=== PATIENT | female | born 1990 | race Native Hawaiian/Other Pacific Islander ===

== ENCOUNTER → 2021-07-18 08:58 | Outpatient (CLI) | payer OTHER, SELFPAY ==
[2021-07-18 10:43] LABS: Hematocrit 28.4 % (36-46); Hemoglobin 9.4 g/dL (12.0-16.0)
[2021-07-18 11:12] LABS: GTT (PREG) 1 Hour PP 50gm Dose 168 mg/dL (76-139)
== END ==
PROVIDERS: Referring Provider Obstetrics & Gynecology; Visit Provider Obstetrics & Gynecology
DX: Z34.82 Encounter for supervision of other normal pregnancy, second trimester (principal); Z3A.26 26 weeks gestation of pregnancy
CPT/HCPCS: 36415; 82950; 85014; 85018

== ENCOUNTER → 2021-07-20 09:43 | Outpatient (CLI) | payer OTHER, SELFPAY ==
[2021-07-20 11:56] LABS: Glucose 1 Hour Gest 217 mg/dL (76-180)
[2021-07-20 11:59] LABS: Glucose Fasting Gestational 81 mg/dL (76-95)
[2021-07-20 13:09] LABS: Glucose 2 Hour Gest 165 mg/dL (76-155)
[2021-07-20 13:13] LABS: Glucose Tol Interp,Gestational INTERPRETATION
[2021-07-20 14:16] LABS: Glucose 3 Hour Gest 123 mg/dL (76-140)
== END ==
PROVIDERS: Referring Provider Obstetrics & Gynecology; Visit Provider Obstetrics & Gynecology
DX: O99.810 Abnormal glucose complicating pregnancy (principal)
CPT/HCPCS: 36415; 82951; 82952

== ENCOUNTER → 2021-09-12 09:19 | Outpatient (CLI) | payer OTHER, SELFPAY ==
[2021-09-12 10:28] LABS: Add Manual Diff / Slide Review NO; Basophils Absolute Auto 0 /uL (0-100); Basophils Percent Auto 0.2 % (0-2); Eosinophils Absolute Auto 100 /uL (0-450); Eosinophils Percent Auto 0.9 % (2-4); Hematocrit 31.3 % (36-46); Hemoglobin 10.7 g/dL (12.0-16.0); Lymphocytes Absolute Auto 1900 /uL (1100-4500); Lymphocytes Percent Auto 16.7 % (25-40); Mean Corpuscular HGB Conc 34.3 % (30-36); Mean Corpuscular Hemoglobin 29.2 PG (26-34); Mean Corpuscular Volume 85.2 fL (80-100); Monocytes Absolute Auto 1000 /uL (0-900); Monocytes Percent Auto 9.3 % (3-14); Neutrophils Absolute Auto 8100 /uL (1500-7000); Neutrophils Percent Auto 72.9 % (50-75); Platelet Count 286 X10^3/uL (150-400); Red Blood Cell Count 3.67 X10^6/uL (4.0-5.2); Red Cell Distribution Width 13.5 % (11.6-14.8); White Blood Cell Count 11.2 X10^3/uL (4.5-11.0)
== END ==
PROVIDERS: Referring Provider Obstetrics & Gynecology; Visit Provider Obstetrics & Gynecology
DX: O99.019 Anemia complicating pregnancy, unspecified trimester (principal)
CPT/HCPCS: 36415; 85025

== ENCOUNTER → 2021-09-25 09:44 | Outpatient (CLI) | payer OTHER, SELFPAY ==
[2021-09-26 07:40] LABS: Strep Grp B PCR NEG for Grp B Strep
== END ==
PROVIDERS: Visit Provider Obstetrics & Gynecology
DX: Z34.83 Encounter for supervision of other normal pregnancy, third trimester (principal); Z3A.36 36 weeks gestation of pregnancy
CPT/HCPCS: 87653

== ENCOUNTER 2021-10-10 19:06 | Inpatient (IN) | payer OTHER, SELFPAY ==
[2021-10-10 19:42] VITALS: BP 119/64
[2021-10-10 20:31] LABS: Add Manual Diff / Slide Review NO; Basophils Absolute Auto 0 /uL (0-100); Basophils Percent Auto 0.3 % (0-2); Eosinophils Absolute Auto 100 /uL (0-450); Eosinophils Percent Auto 1.1 % (2-4); Hematocrit 34.7 % (36-46); Hemoglobin 11.5 g/dL (12.0-16.0); Lymphocytes Absolute Auto 1900 /uL (1100-4500); Lymphocytes Percent Auto 14.1 % (25-40); Mean Corpuscular Hemoglobin 28.6 PG (26-34); Mean Corpuscular Volume 86.6 fL (80-100); Monocytes Absolute Auto 1400 /uL (0-900); Monocytes Percent Auto 10.7 % (3-14); Neutrophils Absolute Auto 9900 /uL (1500-7000); Neutrophils Percent Auto 73.8 % (50-75); Platelet Count 316 X10^3/uL (150-400); Red Blood Cell Count 4.01 X10^6/uL (4.0-5.2); White Blood Cell Count 13.4 X10^3/uL (4.5-11.0)
[2021-10-10 20:46] LABS: COVID19 -Nasal RAPID Negative (Negative)
[2021-10-10] MEDS: DINOPROSTONE VAG (CERVIDIL) 10 MG VAG (20:58)
[2021-10-11] MEDS: LACTATED RINGERS 1,000 ML 100 ML IV (09:33)
[2021-10-11] MEDS: OXYTOCIN PREMIX 30 UNIT/500 ML PLAST..BAG IV (09:35)
--- NOTE | 2021-10-11 17:43 | PM.OBHP.IH.1 ---
OB HPI Date/Time Date of admission: 10/10/21 Date Patient Seen: 10/11/21 Time Patient Seen: 07:30 History of Present Condition Chief complaint: KIERA Calculator Estimated Delivery Date Method Current WG Current Estimate 10/17/21 LMP (Certain) 39w 1d Other Estimates 10/17/21 Ultrasound #1 39w 1d Estimated Gestational Age (weeks): 39+1 : 1 Para: 0 care: good care, initiated at week # (11), number of visits (10) and pounds weight gain (43) Dating criteria OB: LMP confirmed by 1st trimester US Ultrasounds: normal 1st trimester US and normal mid trimester US Obstetrical complications: gestational diabetes Medical complications OB: none Indications Indication for induction OB: gestational diabetes Preadmission Labs Last OB Lab Results: Blood Type O Positive 10/10/21 20:02 Antibody Screen Negative 10/10/21 20:02 Hematocrit 34.7 % (36-46) L 10/10/21 20:02 Hemoglobin 11.5 g/dL (12.0-16.0) L 10/10/21 20:02 Glucose 1 Hour 168 mg/dL (76-139) H 07/18/21 10:16 Group B Streptococcus (PCR) Neg for grp b strep 09/25/21 09:44 -: Chlamydia screen: negative, Gonorrhea screen: negative and Urine: negative -: PAP smear: Normal Genetic Screens: Cell-free DNA: Normal and Alpha-fetoprotein: Normal External Labs -: Urine: negative Prior (ies) Past Pregnancies Del. Date GA/Weeks Labor Lgth Wt Sex Route Outcome Anesthesia Place Delv Breastfeed Preg Comp Name 05/22/01 4 elective 08/25/02 elective Delivery Date: 05/22/01 Last Updated by: Vaishali Resendiz R.N. 2 chemically induced ABs Evaluation Evaluation Baseline heart rate: 130 Variability: Moderate (11-25) monitor accelerations: Present Monitor Decelerations: Absent Uterine Contraction Intensity: Mild Status: Category l Dilation (cm): 1 Effacement (%): 50 station: -2 Position of cervix: posterior Consistency: medium [facility] Medical History (Updated 09/12/21 @ 17:09 by Juan Valentin MD) Arm fracture (~1994) Depression Psoriasis (~2003) UTI (urinary tract infection) Family History (Updated 06/17/21 @ 21:07 by Cydney James) Grandfather Diabetes mellitus Grandmother Psoriasis Grandfather Hyperlipidemia Stroke Social History marital status: details: SHIRLEY Kelly, phone [phone] number of children: 0 household members: spouse and family lives independently: Yes caregiver/support person: No housing: house pets and animals: Yes ([facility]) education level: college 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) current occupational exposures/hazards: No seatbelt use: always water heater temp set < 120 deg: Yes working smoke detector in home: Yes fire extinguisher in home: Yes carbon monox detector in home: Yes firearms in home: Yes firearms unloaded and locked: Yes do you feel safe at home: Yes Smoking Status: Never smoker second hand exposure: No alcohol intake: never substance use type: does not use and marijuana (In high school) during the past year weight has: remained stable well-balanced diet: daily or most days daily servings fruits/ve-4 caffeine: Yes (1/day) Type(s) of exercise: irregular exercise Meds Home Medications and Allergies Home Medications Medication Instructions Recorded Confirmed Type prenat.vits,alan,jum-nwgm-rutzw 1 tab PO DAILY 05/25/21 10/10/21 History blood sugar diagnostic (Blood #120 ea 07/23/21 10/10/21 Rx Glucose Test strips) blood-glucose meter (Blood Glucose #1 ea 07/23/21 10/10/21 Rx Monitoring kit) lancets #120 ea 07/23/21 10/10/21 Rx Cimzia 10/10/21 10/10/21 History Allergies Allergy/AdvReac Type Severity Reaction Status Date / Time No Known Drug Allergies Allergy Verified 10/03/21 07:59 OB Exam Narrative Exam Narrative: Generally: Patient is sitting up in bed, no acute distress Lungs: Clear to auscultation bilaterally Cardiovascular: Regular rate and rhythm Fundal height: 39 cm Estimated weight: 7-1/2 lb Extremities: Trace edema, 1+ DTRs Objective Labs Result Diagrams: 10/10/21 20:02 Labs: Laboratory Results - last 24 hr 10/10/21 10/10/21 10/10/21 20:02 20:02 20:02 WBC 13.4 H RBC 4.01 Hgb 11.5 L Hct 34.7 L MCV 86.6 MCH 28.6 MCHC 33.0 RDW 14.0 Plt Count 316 Neut % (Auto) 73.8 Lymph % (Auto) 14.1 L [place] % (Auto) 10.7 Eos % (Auto) 1.1 L Baso % (Auto) 0.3 Neut # (Auto) 9900 H Lymph # (Auto) 1900 [place] # (Auto) 1400 H Eos # (Auto) 100 Baso # (Auto) 0 SARS-CoV-2 (PCR) Negative Blood Type O Positive Antibody Screen Negative Assessment and Plan Assessment and Plan Assessment and Plan narrative: Assessment: 31-year-old 1 para 0 at 39-,1/7 weeks gestation status post Cervidil overnight Gestational diabetes Plan: Pitocin per protocol 2 Epidural as necessary Expected management to spontaneous vaginal delivery Time Spent with Patient Total time spent with greater than 50% in coordination of care (as documented) at patient's floor/unit and/or counseling patient:: 15-24 minutes
--- NOTE | 2021-10-11 17:53 | PM.OBPNLAB ---
Date/Time Date Patient Seen: 10/11/21 Time Patient Seen: 13:21 Pain Control Pain control: tolerating well Pelvic Exam Dilation (cm): 2 Effacement (%): 70 station: -2 Amniotic membrane status: Intact Contractions Contractions on admission: none Monitor mode: External Pitocin rate (mU/min): 10 Contraction frequency (min): 3 Contraction duration (min): 1 Contraction intensity: Mild Status status: Category l Heart Rate Baseline: 130 Monitor Accelerations: Present Monitor Decelerations: Absent Monitor Variability: Moderate Assessment and Plan Assessment: induction ongoing Plan: continuous present management
--- NOTE | 2021-10-11 17:54 | PM.OBPNLAB ---
Date/Time Date Patient Seen: 10/11/21 Time Patient Seen: 17:54 Pain Control Pain control: tolerating well Pelvic Exam Dilation (cm): 2 Effacement (%): 75 station: -1 Amniotic membrane status: Intact Contractions Monitor mode: External Pitocin rate (mU/min): 16 Contraction frequency (min): 3 Contraction duration (min): 1 Contraction pattern: Regular Contraction intensity: Mild Status status: Category l Heart Rate Baseline: 135 Monitor Accelerations: Present Monitor Decelerations: Absent Monitor Variability: Moderate Assessment and Plan Assessment: induction ongoing Comments: Discontinue Pitocin Oral Cytotec overnight Patient may leave the hospital to go and have dinner
[2021-10-12] MEDS: DINOPROSTONE VAG (CERVIDIL) 10 MG VAG (00:19)
[2021-10-12] MEDS: LACTATED RINGERS 1,000 ML 100 ML IV ×3 (08:55→18:58)
[2021-10-12] MEDS: OXYTOCIN PREMIX 30 UNIT/500 ML PLAST..BAG IV (08:56)
--- NOTE | 2021-10-12 13:24 | PM.OBPNLAB ---
Date/Time Date Patient Seen: 10/12/21 Time Patient Seen: 07:50 Pain Control Pain control: tolerating well Pelvic Exam Amniotic membrane status: Intact Contractions Contractions on admission: none Monitor mode: External Status status: Category l Heart Rate Baseline: 135 Monitor Accelerations: Present Monitor Decelerations: Absent Monitor Variability: Moderate Assessment and Plan Assessment: induction ongoing Comments: s/p Cervidil from 12 mid - 3 am Restart Pitocin AROM when able Expectant management to
--- NOTE | 2021-10-12 13:26 | PM.OBPNLAB ---
Date/Time Date Patient Seen: 10/12/21 Time Patient Seen: 11:30 Pain Control Pain control: tolerating well Pelvic Exam Dilation (cm): 3 Effacement (%): 80 station: -1 Amniotic membrane status: Intact Contractions Contractions on admission: none Monitor mode: External Pitocin rate (mU/min): 10 Contraction frequency (min): 3 Contraction duration (min): 1 Contraction pattern: Regular Contraction intensity: Moderate Status status: Category l Heart Rate Baseline: 130 Monitor Accelerations: Present Monitor Decelerations: Absent Monitor Variability: Moderate Assessment and Plan Assessment: active labor Comments: AROM with copious clear amniotic fluid Epidural prn
--- NOTE | 2021-10-12 13:28 | PM.OBPNLAB ---
Date/Time Date Patient Seen: 10/12/21 Time Patient Seen: 13:28 Pain Control Pain control: tolerating well Pelvic Exam Dilation (cm): 3 Effacement (%): 80 station: -1 Amniotic membrane status: Ruptured Comments: Leaking copious amniotic fluid Contractions Monitor mode: External Pitocin rate (mU/min): 6 Contraction frequency (min): 3 Contraction duration (min): 1 Contraction pattern: Regular Contraction intensity: Moderate Status status: Category l Heart Rate Baseline: 135 Monitor Accelerations: Present Monitor Decelerations: Absent and Late (few, after AROM) Monitor Variability: Moderate Assessment and Plan Assessment: active labor Plan: continuous present management Comments: Epidural prn
--- NOTE | 2021-10-12 16:01 | PM.AN.REGBLK ---
Regional Block Pre-procedure PMH/ROS narrative: term induction, GDM diet controlled ASA Class: II Labs: Hct 34.7 % (36-46) L 10/10/21 20:02 Plt Count 316 X10^3/uL (150-400) 10/10/21 20:02 Medications: Current Medications Generic Name Dose Route Start Last Admin Trade Name Freq PRN Reason Stop Dose Admin Calcium Carbonate 1,000 mg 10/10/21 19:20 Calcium Carbonate 500 Mg Tab PO Q2HR PRN Dyspepsia Carboprost Tromethamine 250 mcg 10/10/21 19:20 Carboprost 250 Mcg/Ml Ampul IM Q90M PRN Bleeding Fentanyl 50 mcg 10/10/21 19:20 Fentanyl 100 Mcg/2 Ml Inj IV Q1H PRN Pain, Moderate (4-6) Lactated Ringer's 1,000 mls @ 100 mls/hr 10/10/21 19:30 10/12/21 15:41 Lactated Ringers IV 100 mls/hr CONT FLAKO Administration Oxytocin/Lactated Ringer's 30 unit in 500 mls @ 200 mls/hr 10/10/21 19:20 Oxytocin Premix IV CONT PRN Bleeding Protocol Oxytocin/Lactated Ringer's 30 unit in 500 mls @ 3 mls/hr 10/10/21 19:30 10/12/21 08:56 Oxytocin Premix IV 3 milliunit/min TITRATE FLAKO 3 mls/hr Administration Protocol 3 MILLIUNIT/MIN Tranexamic Acid 1,000 mg/ 100 mls @ 200 mls/hr 10/10/21 19:20 Sodium Chloride IV NOW PRN Bleeding Oxytocin/Lactated Ringer's 30 unit in 500 mls @ 1 mls/hr 10/12/21 08:30 10/12/21 15:38 Oxytocin Premix IV Not Given TITRATE FLAKO Protocol 1 MILLIUNIT/MIN Methylergonovine Maleate 0.2 mg 10/10/21 19:20 Methylergonovine 0.2 Mg/Ml Vial IM NOW PRN Bleeding Methylergonovine Maleate 0.2 mg 10/10/21 19:20 Methylergonovine 0.2 Mg Tablet PO Q6HR PRN Heavy Bleeding Metoclopramide HCl 10 mg 10/10/21 19:20 Metoclopramide 10 Mg/2 Ml Inj IV NOW PRN Nausea And Vomiting Misoprostol 1,000 mcg 10/10/21 19:20 Misoprostol 200 Mcg Tablet SD NOW PRN Bleeding Misoprostol 400 mcg 10/10/21 19:20 Misoprostol 200 Mcg Tablet SL NOW PRN Bleeding Misoprostol 800 mcg 10/10/21 19:20 Misoprostol 200 Mcg Tablet SD NOW PRN Bleeding Misoprostol 50 mcg 10/11/21 18:00 10/12/21 15:39 Misoprostol 25 Mcg Tablet PO Not Given Q6HR FLAKO Naloxone HCl 0.2 mg 10/10/21 19:20 Naloxone 0.4 Mg/Ml Vial IV Q2MIN PRN Opiate Reversal Ondansetron HCl 4 mg 10/10/21 19:20 Ondansetron 4 Mg/2 Ml Inj IV Q4HR PRN Nausea And Vomiting Oxytocin 10 unit 10/10/21 19:20 Oxytocin 10 Unit/Ml Vial IM NOW PRN Bleeding Zolpidem Tartrate 5 mg 10/11/21 17:57 Zolpidem 5 Mg Tablet PO BEDTIME PRN Sleep Allergies: Allergies Allergy/AdvReac Type Severity Reaction Status Date / Time No Known Drug Allergies Allergy Verified 10/03/21 07:59 Procedure Insertion date: 10/12/21 Insertion time: 13:20 Prep/Local: betadine x3 and 1% lidocaine Interspace: L3-4 Patient position: sitting Needle: 18 gauge Hustead (CEE: 27g Pencan through Hustead, clear CSF, 1mL 0.25% bupiv MPF) Loss of resistance with: saline BERNABE at (cm): 5 Catheter placed at SKIN (cm): 10 Catheter in SPACE (cm): 5 Insertion: No CSF, No Blood, No Paresthesia with insertion, No Paresthesia with injection and No Test dose reaction Initial Medications TEST DOSE: 1.5% lidocaine with epinephrine 1:200k (mL): 3 BOLUS DOSE time: 16:28 BOLUS DOSE (mL): 4 BOLUS DOSE med: other (infusate) Infusion INFUSION: 0.125% bupivacaine and with fentanyl 2 mcg/mL Initial rate (mL/hr): 6 Subsequent interventions: see anesthesia record. to OR for CS, failure to progress Post-procedure Anesthesia time START: 16:05 Anesthesia time END: 22:14 Post-procedure Anesthesia Assessment: Yes CV function: HR/BP stable, Yes Resp function: RR/sat/airway adequate and Yes Mental status appropriate
--- NOTE | 2021-10-12 18:48 | PM.OBPNLAB ---
Date/Time Date Patient Seen: 10/12/21 Time Patient Seen: 18:51 Pain Control Pain control: epidural Pelvic Exam Dilation (cm): 7 Effacement (%): 100 station: -1 Amniotic membrane status: Ruptured Contractions Contractions on admission: none Monitor mode: External Pitocin rate (mU/min): 12 Contraction frequency (min): 3 Contraction pattern: Regular Contraction intensity: Strong/Firm Status status: Category l Heart Rate Baseline: 135 Monitor Accelerations: Present Monitor Decelerations: Absent Monitor Variability: Moderate Assessment and Plan Assessment: active labor and induction ongoing Plan: continuous present management
--- NOTE | 2021-10-12 22:22 | PM.OBPNLAB ---
Date/Time Date Patient Seen: 10/12/21 Time Patient Seen: 22:22 Pain Control Pain control: epidural Pelvic Exam Dilation (cm): 6 Effacement (%): 100 station: -1 Amniotic membrane status: Ruptured Contractions Contractions on admission: none Monitor mode: External Pitocin rate (mU/min): 12 Contraction frequency (min): 3 Contraction duration (min): 1 Contraction pattern: Regular Contraction intensity: Strong/Firm Status status: Category l Heart Rate Baseline: 135 Monitor Accelerations: Present Monitor Decelerations: Absent Monitor Variability: Moderate Assessment and Plan Assessment: other (Stage 1 Arrest of Labor) Plan: Comments: The risks, benefits, and alternatives to the procedure were explained to the patient. The risks including bleeding, infection, injury to the bowel, bladder, or ureters. She understands these risks and agrees to proceed. A full par Q was held and consent form was signed.
--- NOTE | 2021-10-12 22:23 | PM.PREOP ---
Pre-operative Note COVID-19 COVID-19 status: Negative Result date/Date tested (Pos, Neg/Pending): 10/10/21 Criteria for continued procedure: Non-surgical alternatives not available or appropriate per current SOC Interval Note History & Physical reviewed/Exam performed by Physician: Yes Changes to H&P: No H&P completed within 30 days and has changed as indicated here:: 10/11/21
[2021-10-12] MEDS: ACETAMINOPHEN IV 1,000 MG/100 ML VIAL 400 MG IV (22:46)
[2021-10-12] MEDS: CEFAZOLIN 2 GM/20 ML SYRINGE IV (22:55)
--- NOTE | 2021-10-12 23:06 | SUR.OPER ---
Supine on Padded OR bed, head on pillow, safety belt at thigh, arms secured on padded arm boards at <90 degrees abduction. Bump under right buttock. Legs uncrossed with pillow under knees, gel pad to heels, tape over blanket to lower legs.
--- NOTE | 2021-10-12 23:30 | SUR.OPER ---
viable baby boy born at 2310, placenta delivered at 2315, cord blood and placenta given to OB RN, 12/28
--- NOTE | 2021-10-12 23:55 | P.OP_ITS ---
Operative Date/Time/Diagnoses Date of procedure: 10/12/21 Time of procedure: 23:55 Pre-op diagnosis: Thirty-nine weeks gestation Gestational diabetes Stage I arrest of labor Post-op diagnosis: same Procedure & Clinicians Procedure: Primary low-transverse section Same procedure as scheduled: Yes Indications: 39 weeks gestation Stage I arrest of labor Surgeon: Nadeen Sheikh Yes if Unassisted: Yes Anesthesia Type: Epidural (With Duramorph) Operative Notes Findings: Live male in the ROP presentation Normal uterus, tubes, and ovaries Nuchal cord x1 Closure Type: primary Specimen(s): cord blood and placenta Intraoperative meds administered: Acetaminophen, Duramorph and Ketorolac Applied: Catheter Estimated Blood Loss (mL): 600 Procedure in detail: The patient was taken to the operating room where she was placed in the dorsal supine position with a leftward tilt. She was prepped and draped in the usual sterile fashion. A timeout was performed. After epidural analgesia was found to be adequate, a Pfannenstiel skin incision was made 2 fingerbreadths above the pubic symphysis and carried through to the underlying layer fascia. The fascia was nicked in the midline, and the incision extended bilaterally with the Cano scissors. The superior aspect of the fascial incision was grasped with a [place] clamps, elevated, and the underlying rectus muscles dissected off sharply and bluntly. Attention was then turned to the inferior aspect of this incision which in a similar fashion was grasped with a Nelida clamps, elevated, and the underlying rectus muscles dissected off sharply and bluntly. The rectus muscles were in the midline. The peritoneum was identified, grasped between 2 hemostats, and entered sharply with the Metzenbaum scissors. This incision was extended superiorly and inferiorly with good visualization of the bladder. The bladder blade was inserted. The vesicouterine peritoneum was identified, grasped with the pickup, and entered sharply with the Metzenbaum scissors. This incision was extended bilaterally, and the bladder flap was created digitally. The bladder blade was reinserted. The lower uterine segment was incised in a transverse fashion with the scalpel. Upon entering the amniotic sac there was a small amount of clear amniotic fluid. The 's head was delivered without difficulty. The nose and mouth were suctioned with bulb suction. The remainder of the body delivered without difficulty. The cord was double clamped and cut after one minute. The was handed off to waiting RN and RT. The placenta was delivered manually. The uterus was cleared of all clots and debris. The uterine incision was repaired with #1 chromic in a running interlocking fashion, and a second layer the same suture was used for an imbricating layer. Hemostasis was achieved. The tubes and ovaries were examined and were found to be normal. The gutters were cleared of all clots and debris. The bladder flap was reapproximated using 2-0 Vicryl in a running fashion. The parietal peritoneum was closed using 2-0 Vicryl in a running fashion. The fascia was reapproximated using 0 Vicryl in a running fashion. Subcutaneous layer was copiously irrigated with warm normal saline. 6 simple interrupted sutures of 3-0 Vicryl were placed to reapproximate the subcutaneous layer. The skin was closed with 4-0 Monocryl in a subcuticular fashion. Steri- Strips were placed. An Aquacel dressing was placed. The uterus was expressed of a small amount of old blood. Sponge, lap, and instrument counts were correct x-2. The patient tolerated the procedure well, and was taken to PACU in stable condition. Complications: none [place] Baby 1: Infant Gender: Male Presentation: vertex Position: Right Occiput Posterior Placental Delivery Description: Manual Removal Cord Vessel Description: 3 Vessels, Nuchal Cord (x 1) and Reduced score (1 min): 9 score (5 min): 9 weight: 7 lb 12.5 oz Post-operative Condition: stable Disposition: PACU Aftercare: routine postop
[2021-10-12 23:59] VITALS: BP 116/62; PULSE 96; RESP 18; TEMP 36.4; O2SAT 98
[2021-10-13 00:03] VITALS: BP 99/60; PULSE 94; RESP 23; TEMP 36.3; O2SAT 99
[2021-10-13 00:10] VITALS: BP 110/69; PULSE 106; RESP 20; TEMP 36.2; O2SAT 99
[2021-10-13] MEDS: ACETAMINOPHEN 325 MG TABLET 650 MG PO ×4 (01:03→20:15)
[2021-10-13] MEDS: OXYCODONE IR 5 MG TABLET PO ×3 (01:28→22:03)
[2021-10-13] MEDS: KETOROLAC 30 MG/ML VIAL IV ×3 (05:09→17:00)
[2021-10-13] MEDS: DOCUSATE 100 MG CAPSULE 200 MG PO (09:01)
[2021-10-13] MEDS: PRENATAL VIT,CALC/IRON/FOLIC 1 TABLET 1 TAB PO (09:02)
[2021-10-13] MEDS: LANOLIN OINT 7 GM 1 APPLIC TOP (09:02)
--- NOTE | 2021-10-13 10:11 | PM.OBPN.1 ---
Subjective - OB Subjective Patient comments: no complaints, pain well controlled and tolerating diet baby status: doing well and nursing well feeding status: exclusively breast feeding Date Patient Seen: 10/13/21 Time Patient Seen: 10:11 Interval history: Patient is a 31-year-old 1 para 1 postop day # 0-1 status post primary section for stage I arrest of labor. Nursing is going well. Pain is well controlled. Ortiz catheter still in. Patient has tolerated a diet. Exam Vital Signs (past 8 hours): Oxygen Delivery Method Room Air Oxygen Flow Rate 0 Narrative Exam Narrative: Generally: Patient is sitting up in bed, holding infant, no acute distress Lungs: Clear to auscultation bilaterally Cardiovascular: Regular rate and rhythm Fundus: Firm at U -1 Incision: Clean dry and intact with Aquacel dressing. There is a small less than quarter-size area with some old blood. Extremities: Trace edema, negative Homans Objective Labs Result Diagrams: 10/10/21 20:02 Assessment & Plan Plan day: 1 plan OB: routine postop care Time Spent With Patient Time: Total time spent is greater than 50% in coordination of care (as documented) at patient's floor/unit and/or counseling patient: Time with patient: 15-24 minutes
[2021-10-13 12:35] LABS: Hematocrit 18.5 % (36-46); Hemoglobin 6.2 g/dL (12.0-16.0)
[2021-10-13 13:19] LABS: Add Manual Diff / Slide Review NO; Basophils Absolute Auto 0 /uL (0-100); Basophils Percent Auto 0.2 % (0-2); Eosinophils Absolute Auto 100 /uL (0-450); Eosinophils Percent Auto 0.7 % (2-4); Lymphocytes Absolute Auto 1500 /uL (1100-4500); Lymphocytes Percent Auto 11.3 % (25-40); Mean Corpuscular HGB Conc 33.6 % (30-36); Mean Corpuscular Hemoglobin 28.7 PG (26-34); Mean Corpuscular Volume 85.5 fL (80-100); Monocytes Absolute Auto 1500 /uL (0-900); Monocytes Percent Auto 11.2 % (3-14); Neutrophils Absolute Auto 10300 /uL (1500-7000); Neutrophils Percent Auto 76.6 % (50-75); Platelet Count 196 X10^3/uL (150-400); Red Cell Distribution Width 13.6 % (11.6-14.8); White Blood Cell Count 13.5 X10^3/uL (4.5-11.0)
[2021-10-13 13:27] LABS: Hematocrit 18.2 % (36-46); Hemoglobin 6.1 g/dL (12.0-16.0)
[2021-10-13] MEDS: SODIUM CHLORIDE 0.9% 250 ML 21 ML IV (16:05)
[2021-10-13] MEDS: IRON SUCROSE 300 MG in SODIUM CHLORIDE 0.9% 250 ML 176.667 MG IV (16:05)
[2021-10-13 19:16] LABS: Hematocrit 15.9 % (36-46); Hemoglobin 5.3 g/dL (12.0-16.0)
--- NOTE | 2021-10-13 19:32 | DI.US.S_ITS ---
PROCEDURE: US PELVIC LIMITED INDICATIONS: Uterine scan for retained tissue post delivery TECHNIQUE: Real-time transabdominal scanning was performed of the pelvic organs, with image documentation. COMPARISON: None. FINDINGS: Uterus: Uterus is anteverted and normal in size for immediate status at 9.5 x 11.3 x 15.9 cm. The myometrium is homogeneous. The endometrium measures 9.0 mm combined thickness. There is mild heterogeneity of the endometrial lining considering 24 hour status, an expected finding Ovaries: Not seen due to bowel gas. Other: No pathologic free abdominal or pelvic fluid. IMPRESSION: No sign of retained products of conception. Nonvisualization of the ovaries bilaterally due to overlying bowel gas. Uterus enlarged as expected for 24 hour status. We strive to produce accurate, complete, and clear reports of imaging services. To assist us in improving patient care, this report was composed using standard report templates and voice recognition software. Therefore, it may contain abnormal punctuation, insertions and/or omissions. Occasional wrong-word or sound-alike substitutions may occur. Though we review the report and make efforts to correct it, we do recommend that the report be read carefully in proper context to recognize any text inaccuracies. Dictated by: Ryan Hawley M.D. on 10/13/2021 at 20:22 Approved by: Ryan Hawley M.D. on 10/13/2021 at 20:24
[2021-10-13 22:03] VITALS: BP 114/72; PULSE 153; RESP 20; TEMP 36.9
[2021-10-13 22:26] VITALS: BP 107/68; PULSE 118; RESP 18; TEMP 37.4
[2021-10-13 22:43] VITALS: BP 99/59; PULSE 118; RESP 18; TEMP 37.4
[2021-10-14] VITALS (8 sets, daily range): BP systolic 100–115; BP diastolic 53–73; PULSE 89–118; RESP 16–30; TEMP 36.7–37.4; O2SAT 96–99
[2021-10-14] MEDS: IBUPROFEN 600 MG TABLET PO ×4 (01:40→20:09)
[2021-10-14] MEDS: ACETAMINOPHEN 325 MG TABLET 650 MG PO ×3 (02:53→18:14)
[2021-10-14] MEDS: OXYCODONE IR 5 MG TABLET PO ×3 (06:14→22:30)
[2021-10-14] MEDS: DOCUSATE 100 MG CAPSULE 200 MG PO (07:53)
[2021-10-14] MEDS: PRENATAL VIT,CALC/IRON/FOLIC 1 TABLET 1 TAB PO (07:54)
[2021-10-14 08:09] LABS: Add Manual Diff / Slide Review NO; Basophils Absolute Auto 0 /uL (0-100); Basophils Percent Auto 0.2 % (0-2); Eosinophils Absolute Auto 100 /uL (0-450); Eosinophils Percent Auto 0.8 % (2-4); Hematocrit 24.8 % (36-46); Hemoglobin 8.4 g/dL (12.0-16.0); Lymphocytes Absolute Auto 2600 /uL (1100-4500); Lymphocytes Percent Auto 15.8 % (25-40); Mean Corpuscular HGB Conc 34.1 % (30-36); Mean Corpuscular Hemoglobin 29.2 PG (26-34); Mean Corpuscular Volume 85.7 fL (80-100); Monocytes Absolute Auto 1700 /uL (0-900); Monocytes Percent Auto 10.6 % (3-14); Neutrophils Absolute Auto 11800 /uL (1500-7000); Neutrophils Percent Auto 72.6 % (50-75); Platelet Count 215 X10^3/uL (150-400); Red Blood Cell Count 2.89 X10^6/uL (4.0-5.2); Red Cell Distribution Width 14.1 % (11.6-14.8); White Blood Cell Count 16.2 X10^3/uL (4.5-11.0)
--- NOTE | 2021-10-14 08:30 | DI.CT.S_ITS ---
PROCEDURE: CT ABDOMEN PELVIS WO CON INDICATIONS: drop in hematocrit, rule out hematoma TECHNIQUE: Noncontrast 5 mm thick sections acquired from the diaphragms to the symphysis. 5 mm coronal and sagittal reformats were then performed. For radiation dose reduction, the following was used: automated exposure control, adjustment of mA and/or kV according to patient size. COMPARISON: None. FINDINGS: Image quality: Excellent. ABDOMEN: Lung bases: Lung bases are clear. Heart size is normal. Solid organs: Liver is normal in size. Gallbladder is unremarkable . Pancreas is normal in contours. Spleen is normal in size. No adrenal nodules. Kidneys are normal in size. There is a nonobstructing linear 5 mm left lower pole kidney stone. Peritoneum and bowel: Stomach and small bowel loops appear normal. Increased quantity of stool in the colon. Nodes and vessels: No retroperitoneal or mesenteric adenopathy by size criteria. Aorta and inferior vena cava are normal in caliber. Miscellaneous: There is been at recent with a low transverse abdominal wall incision containing small foci of gas. There is a heterogeneous multi lobulated area of increased density in the anterior abdominal wall involving the lower aspect of the rectus sheaths and the underlying preperitoneal space. Overall this area measures roughly 8.6 x 5.4 x 12.1 cm. There is slight mass effect on the underlying urinary bladder. PELVIS: Genitourinary: There is an enlarged uterus. The urinary bladder is partially filled and appears otherwise normal despite overlying mass-effect anteriorly. Miscellaneous: No inguinal hernias or adenopathy. Trace presacral edema/fluid. Bones: No suspicious bony lesions. No vertebral body compression fractures. IMPRESSION: 1. Large lower abdominal wall and preperitoneal space hematoma in the low abdomen/pelvis measuring 292 cc in volume. It is having mass effect on the underlying urinary bladder to a mild degree. 2. Other expected findings of recent and uterus. 3. Incidental finding of nonobstructing left lower pole kidney stone. 4. Discussed with Dr. Jiménez at 10:10 hours. Dictated by: Cordelia Del Rio M.D. on 10/14/2021 at 9:57 Approved by: Cordelia Del Rio M.D. on 10/14/2021 at 10:10
[2021-10-14 12:00] LABS: Add Manual Diff / Slide Review NO; Basophils Absolute Auto 0 /uL (0-100); Basophils Percent Auto 0.2 % (0-2); Eosinophils Absolute Auto 200 /uL (0-450); Eosinophils Percent Auto 1.2 % (2-4); Hematocrit 22.5 % (36-46); Hemoglobin 7.7 g/dL (12.0-16.0); Lymphocytes Absolute Auto 2000 /uL (1100-4500); Lymphocytes Percent Auto 13.4 % (25-40); Mean Corpuscular Volume 85.4 fL (80-100); Monocytes Absolute Auto 1800 /uL (0-900); Monocytes Percent Auto 12.3 % (3-14); Neutrophils Absolute Auto 10600 /uL (1500-7000); Neutrophils Percent Auto 72.9 % (50-75); Platelet Count 198 X10^3/uL (150-400); Red Blood Cell Count 2.64 X10^6/uL (4.0-5.2); Red Cell Distribution Width 13.8 % (11.6-14.8); White Blood Cell Count 14.6 X10^3/uL (4.5-11.0)
--- NOTE | 2021-10-14 13:11 | P.PNOB_ITS ---
Subjective - OB Subjective Patient comments: no complaints, pain well controlled and tolerating diet baby status: doing well and nursing well feeding status: exclusively breast feeding Date Patient Seen: 10/14/21 Time Patient Seen: 13:11 Interval history: Patient is a 31-year-old 1 para 1 postop day # 1-2 status post primary section for stage I arrest of labor. Her hematocrit dropped more than expected for the blood loss during the surgery. She had an ultrasound last night which did not reveal any fluid collection in the pelvis or any retained products. She received 2 units of blood overnight. She felt well this morning. No dizziness or lightheadedness. Due to suspicion for a hematoma, a CT scan was ordered and showed a 12 x 8 x 5 cm preperitoneal clot. Also, a repeat H&H showed that the hematocrit dropped again from 8:00 a.m. this morning. After discussing with the patient and her the options, we have decided to proceed with exploratory laparotomy with evacuation of clot and possible ligation verses cautery of bleeder. Exam Vital Signs (past 8 hours): Oxygen Delivery Method Room Air Oxygen Flow Rate 0 Narrative Exam Narrative: Generally: Patient is sitting up in bed, nursing , no acute distress Lungs: Clear to auscultation bilaterally Cardiovascular: Regular rate and rhythm Fundus: Firm at U -1 Incision: Intact with Aquacel dressing. There was a small area of old blood on the underside of the Aquacel. Extremities: Negative Homans, trace edema Objective Labs Result Diagrams: 10/14/21 11:56 Labs: Laboratory Results - last 24 hr 10/13/21 10/13/21 10/13/21 13:06 13:06 19:00 WBC 13.5 H RBC 2.10 L Hgb 6.1 L* 5.3 L* Hct 18.2 L* 15.9 L* MCV 85.5 MCH 28.7 MCHC 33.6 RDW 13.6 Plt Count 196 Neut % (Auto) 76.6 H Lymph % (Auto) 11.3 L [place] % (Auto) 11.2 Eos % (Auto) 0.7 L Baso % (Auto) 0.2 Neut # (Auto) 06630 H Lymph # (Auto) 1500 [place] # (Auto) 1500 H Eos # (Auto) 100 Baso # (Auto) 0 Blood Type O Positive Antibody Screen Negative Crossmatch See Detail 10/14/21 10/14/21 07:40 11:56 WBC 16.2 H 14.6 H RBC 2.89 L 2.64 L Hgb 8.4 L 7.7 L Hct 24.8 L 22.5 L MCV 85.7 85.4 MCH 29.2 29.0 MCHC 34.1 34.0 RDW 14.1 13.8 Plt Count 215 198 Neut % (Auto) 72.6 72.9 Lymph % (Auto) 15.8 L 13.4 L [place] % (Auto) 10.6 12.3 Eos % (Auto) 0.8 L 1.2 L Baso % (Auto) 0.2 0.2 Neut # (Auto) 37871 H 09500 H Lymph # (Auto) 2600 2000 [place] # (Auto) 1700 H 1800 H Eos # (Auto) 100 200 Baso # (Auto) 0 0 Blood Type Antibody Screen Crossmatch Assessment & Plan Plan day: 2 Comments: Exploratory laparotomy with evacuation of clot and ligation versus cautery of bleeder The risks, benefits, and alternatives to the procedure were explained to the patient. The risks including bleeding or infection. She understands these risks and agrees to proceed. A full par Q was held and consent form was signed. Anesthesia to evaluate for general endotracheal anesthesia versus spinal. Time Spent With Patient Time: Total time spent is greater than 50% in coordination of care (as documented) at patient's floor/unit and/or counseling patient: Time with patient: 25 - 35 minutes
[2021-10-14] MEDS: METOCLOPRAMIDE 10 MG/2 ML INJ IV (14:49)
[2021-10-14] MEDS: CEFAZOLIN 2 GM/20 ML SYRINGE IV (16:14)
[2021-10-14] MEDS: TRANEXAMIC ACID 1,000 MG in SODIUM CHLORIDE 0.9% 100 ML 200 MG IV (16:16)
--- NOTE | 2021-10-14 16:23 | SUR.OPER ---
Supine on padded OR bed, head on pillow, arms secured on padded arm boards at <90 degrees abduction, legs uncrossed, safety belt at thigh, tape over blanket over lower legs.
[2021-10-14] MEDS: BUPIVACAINE 0.5% (PF) VIAL 30 ML INJ (16:30)
--- NOTE | 2021-10-14 17:05 | PM.GYNOP.1 ---
Operative Date/Time/Diagnoses Date of procedure: 10/14/21 Time of procedure: 17:05 Pre-op diagnosis: Preperitoneal hematoma Dropping hematocrit Post-op diagnosis: same Procedure & Clinicians Procedure: Procedures Operation Date: 10/12/21 22:30 Actual Procedure Side Surgeon p Section Nadeen Jiménez MD Operation Date: 10/14/21 16:00 Actual Procedure Side Surgeon p ABDOMINAL WOUND EXPLORATION,EVACUATION OF CLOT Not Applicable Nadeen Jiménez MD Indications: Preperitoneal hematoma by CT scan Dropping hematocrit Surgeon: Nadeen Jiménez Anesthesia Type: General Operative Notes Findings: 12 x 8 x 5 cm hematoma between the muscle and peritoneum Closure Type: primary Specimen(s): none Estimated blood loss (mL): 10 Blood products transfused: none Procedure in detail: After informed consent was obtained, the patient was taken to the operating room where she was placed in the dorsal supine position. After adequate general endotracheal anesthesia was achieved, she was prepped and draped in the usual sterile fashion. A time-out was performed. The previous Pfannenstiel incision was opened as was the subcutaneous layer. The suture in the fascia was clipped and the fascial layer was opened. There was a large hematoma. This was evacuated both manually and with irrigation and suction. There was a bleeding area underneath the fascia in the most in inferior area. A gmhwri-no-hjwws suture with two 0 Vicryl was placed. Hemostasis was achieved. There was a small area on the left rectus muscle which was also oozing. A ppjeza-ay-lazzz suture with 2-0 Vicryl was placed. Hemostasis was achieved. The area was copiously irrigated and all of the visible clot removed. There was no bleeding noted. The fascia was reapproximated with 0 Vicryl in a running fashion. The subcutaneous layer was copiously irrigated. Small bleeders were cauterized with the Bovie. Six simple interrupted sutures with 3-0 Vicryl were placed to reapproximate the subcutaneous layer. The skin was closed with 4-0 Monocryl in a subcuticular fashion. Steri-Strips and Aquacel dressing were placed. Sponge, lap, and instrument counts were correct x2. The patient tolerated the procedure well, and was taken to PACU in stable condition. Complications: none Post-operative Condition: stable Disposition: PACU Plan for aftercare: To the center after recovery
--- NOTE | 2021-10-14 17:22 | SUR.PHASEI ---
awake, talking, denies pain/nausea, declines PO intake.
--- NOTE | 2021-10-14 17:28 | SUR.PHASEI ---
Juan, Spoke with Dr. 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 Report called to floor. Continues to decline PO intake.
[2021-10-14] MEDS: BENZOCAINE/MENTHOL 1 LOZ PKT 1 EACH PO ×3 (18:56→22:51)
[2021-10-14] MEDS: MAGNESIUM HYDROXIDE 30 ML UDC PO (20:19)
[2021-10-15] MEDS: ACETAMINOPHEN 325 MG TABLET 650 MG PO ×2 (00:30→08:08)
[2021-10-15] MEDS: IBUPROFEN 600 MG TABLET PO (06:05)
[2021-10-15 06:21] LABS: Hematocrit 23.3 % (36-46); Hemoglobin 7.9 g/dL (12.0-16.0)
[2021-10-15] MEDS: FERROUS SULFATE 325 MG TABLET PO (08:09)
[2021-10-15] MEDS: PRENATAL VIT,CALC/IRON/FOLIC 1 TABLET 1 TAB PO (08:09)
[2021-10-15] MEDS: DOCUSATE 100 MG CAPSULE 200 MG PO (08:09)
[2021-10-15] MEDS: PHENOL LIQUID 100 SPRAYS/BOTTLE SPRAY MM (09:02)
== END 2021-10-15 11:25 | disposition home or self-care (01) | DRG 788 ==
PROVIDERS: Admitting Provider Obstetrics & Gynecology; Referring Provider Obstetrics & Gynecology; Visit Provider Obstetrics & Gynecology
PROC: 10D00Z1 Extraction of Products of Conception, Low, Open Approach (ICD-10-PCS; CPT 59514; principal; 2021-10-12 22:30)
PROC: 0WJJ0ZZ Inspection of Pelvic Cavity, Open Approach (ICD-10-PCS; CPT 49000; principal; 2021-10-14 16:00)
DX: O62.1 Secondary uterine inertia (principal); O90.2 Hematoma of obstetric wound; O24.420 Gestational diabetes mellitus in childbirth, diet controlled; Z3A.39 39 weeks gestation of pregnancy; Z37.0 Single live birth; O69.81X0 Labor and delivery complicated by cord around neck, without compression, not applicable or unspecified; Z20.822 Contact with and (suspected) exposure to COVID-19
CPT/HCPCS: 01967; 01968; 36415; 36430; 59050; 59200; 59515; 74176; 76857; 85014; 85018; 85025; 86850; 86900; 86901; 87635; C9803; P9016; G0379; J0131; J0690; J1100; J1756; J1885; J2274; J2405; J2590; J2704; J2765; J3010

== ENCOUNTER 2022-04-27 07:46 | Emergency (ER) | payer OTHER, SELFPAY ==
[2022-04-27 07:57] VITALS: BP 123/56; PULSE 117; RESP 18; TEMP 37.3; O2SAT 98
[2022-04-27 08:50] LABS: COVID19 -Nasal RAPID Negative (Negative)
--- NOTE | 2022-04-27 08:59 | ED.URI ---
HPI - URI/Sore Throat General Chief Complaint: Upper Respiratory Symptoms Stated Complaint: tonsils inflamed Time Seen by Provider: 04/27/22 08:58 Source: patient Mode of arrival: Ambulatory History of Present Illness HPI Narrative: Patient is a 32-year-old healthy female who presents with sore throat that started yesterday. She is not had fever but feels mildly chilled. She also feels like her ears are plugged. She denies any fever cough or congestion. No nausea vomiting or abdominal pain. Works in healthcare Related Data Home Medications Medication Instructions Recorded Confirmed prenat.vits,alan,uxb-juxl-uaozc 1 tab PO DAILY 05/25/21 11/21/21 Previous Rx's Medication Instructions Recorded blood sugar diagnostic (Blood #120 ea 07/23/21 Glucose Test strips) blood-glucose meter (Blood Glucose #1 ea 07/23/21 Monitoring kit) lancets #120 ea 07/23/21 citalopram 10 mg tablet (Celexa) 10 mg PO DAILY #30 tabs 11/21/21 Allergies Allergy/AdvReac Type Severity Reaction Status Date / Time No Known Drug Allergies Allergy Verified 04/27/22 08:00 Patient History Medical History (Updated 04/27/22 @ 09:11 by Kimberley Lopez DO) Arm fracture (~1994) Depression Psoriasis (~2003) UTI (urinary tract infection) Family History (Updated 06/17/21 @ 21:07 by Cydney James) Grandfather Diabetes mellitus Grandmother Psoriasis Grandfather Hyperlipidemia Stroke Social History marital status: details: James SHIRLEY Jimenez, phone [phone] number of children: 0 household members: spouse and family lives independently: Yes caregiver/support person: No housing: house pets and animals: Yes ([facility]) education level: college 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) current occupational exposures/hazards: No seatbelt use: always water heater temp set < 120 deg: Yes working smoke detector in home: Yes fire extinguisher in home: Yes carbon monox detector in home: Yes firearms in home: Yes firearms unloaded and locked: Yes do you feel safe at home: Yes Smoking Status: Never smoker second hand exposure: No alcohol intake: never substance use type: does not use and marijuana (In high school) during the past year weight has: remained stable well-balanced diet: daily or most days daily servings fruits/ve-4 caffeine: Yes (1/day) Type(s) of exercise: irregular exercise Smoking Status: Never smoker Substance Use Type: does not use Exam Initial Vital Signs Initial Vital Signs: Vital Signs Temperature 99.1 F 04/27/22 07:57 Pulse Rate 117 H 04/27/22 07:57 Respiratory Rate 18 04/27/22 07:57 Blood Pressure 123/56 L 04/27/22 07:57 Pulse Oximetry 98 04/27/22 07:57 Oxygen Delivery Method 04/27/22 07:57 GENERAL: Alert pleasant 32-year-old female HEENT: Head atraumatic,EOMI, pupils reactive, face symmetric, moist mucous membranes EARS: Tympanic membranes visualized, no erythema or bulging, no hemotympanum PHARYNX: Mild erythema, no tonsillar exudate, no cervical lymphadenopathy no uvula deviation, no muffled voice CARDIOVASCULAR: Regular rate and rhythm without murmurs, rubs or gallops. RESPIRATORY: Breath sounds equal bilaterally, no wheezes rales or rhonchi. EXTREMITIES: Normal range of motion, no clubbing or edema. Neurovascularly intact NEUROLOGICAL: Alert and oriented x4. SKIN: Warm, dry, no laceration, no petechiae, no rashes or lesions. Course Orders Ordered: ED Orders 04/27/22 08:15 COVID19 -Nasal RAPID/Pre-Proc Stat Throat Culture Stat Vital Signs Vital signs: Vital Signs - 8 hr 04/27/22 07:57 Temperature 99.1 F Pulse Rate 117 H Respiratory Rate 18 Blood Pressure 123/56 L Pulse Oximetry 98 Oxygen Delivery Method Room Air MDM - URI/Sore Throat Lab Data Labs: Lab Results 04/27/22 Range/Units 08:15 SARS-CoV-2 (PCR) Negative (Negative) Point of Care Testing Rapid Strep A Negative MDM Narrative Medical decision making narrative: Patient healthy 32-year-old female sore throat for 24 hours or last with a negative strep and negative COVID test. Backup and culture is sent for strep. However no exudate he is afebrile. At this time I do not feel strongly about starting antibiotics recommend waiting for the culture to return. Probably viral syndrome. Discussed with her that if her symptoms worsen to return to the ED she currently has no signs of retropharyngeal abscess or peritonsillar abscess. Recommend supportive care only. She is currently breast-feeding we talked about appropriate medications. Discharge Plan Departure Patient Disposition: Home Clinical Impression: Acute upper respiratory infection Instructions: DI for Viral Upper Respiratory Infection -- Adult Activity Restrictions/Additional Instructions: *You have been diagnosed with upper respiratory infection *What to do: Stay hydrated with fluids try some honey as needed to help soothe your throat Your culture will be back in 2-3 days, only if it is positive will week call you *Continue to take medications as directed Tylenol and Motrin as needed *Follow up with your primary care provider in 2-3 days or call [phone] *Return to ER if you should have increasing pain difficulty swallowing not able to tolerate fluids or any new, worsening or concerning symptoms Prescriptions: No Action (DME) blood-glucose meter [Blood Glucose Monitoring] Kit See Rx Instructions .ROUTE .MEDSUPPLY Qty: 1 0RF Rx Instructions: To use with testing fasting and 2 hr PP blood sugars (DME) Blood Glucose Test Strip See Rx Instructions .ROUTE .MEDSUPPLY Qty: 120 3RF Rx Instructions: Testing blood sugars fasting and 2 hr PP (DME) lancets Misc See Rx Instructions .ROUTE .MEDSUPPLY Qty: 120 3RF Rx Instructions: Testing blood sugars fasting and 2 hr PP prenat.vits,alan,hqn-ayyb-ovhyr Tablet 1 tab PO DAILY citalopram [Celexa] 10 mg tablet 10 mg PO DAILY Qty: 30 11RF Referrals: Romina Mata MD [Primary Care Provider] - Stand Alone Forms: Patient Portal/API, Work Release Note
== END 2022-04-27 09:14 | disposition home or self-care (01) ==
PROVIDERS: Emergency Provider Emergency Medicine; PCP Family Medicine
DX: J06.9 Acute upper respiratory infection, unspecified (principal); Z20.822 Contact with and (suspected) exposure to COVID-19
CPT/HCPCS: 87070; 87635; 87880; 99282; C9803